=== PATIENT | male | born 1965 | race African-American/Black ===

== ENCOUNTER 2016-10-23 22:35 | Inpatient (IN) ==
[2016-10-23] MEDS ORDERED: SODIUM CHLORIDE 0.9% 500 ML IV STA (22:53)
[2016-10-23] MEDS ORDERED: ONDANSETRON 4 MG/2 ML VIAL IV STA (22:53)
--- NOTE | 2016-10-23 23:00 | Emergency Department Note ---
Shereen Todd Mantricia, am scribing for, and in the presence of, Mark Kumar MD 22:58. José Todd Robert M, MD, personally performed the services described in this documentation, ascribed by Yousuf Regan in my presence, and it is both accurate and complete . Arrival - Arrival Chief Complaint: GI Bleed/Rectal Stated Complaint: rectal bleeding stomach pain ED Nursing Triage Note: C/O Rectal bleeding/generalized abd pain. Onset 2 weeks ago. Denies seeking medical attention until tonight. Mode of Arrival: Ambulatory Limitations: No Limitations Source: Patient - History of Present Illness HPI Narrative: Pt is a 51 y/o black male arriving to ED with c/o rectal bleeding to onset 2 weeks ago. Pt reports a story that he did not notice the blood until yesterday. However, he told the triage nurse that he saw blood two weeks ago and did not come to ED. He reports that his last BM was yesterday. Pt has not had a BM today but states that he saw bright red blood. He also c/o abdominal pain. No other complaints were reported to ED. Onset (ago): week(s) Consistency: constant Allergies/Adverse Reactions: Allergies Allergy/AdvReac Type Severity Reaction Status Date / Time No Known Allergies Allergy Unverified 08/17/16 14:35 Home Medications: Home Medications Medication Instructions Recorded Confirmed Type HYDROcodone/ACETAMIN 7.5-325 1 tablet PO Q6H PRN #20 tablet 08/17/16 10/23/16 Rx [[place] 7.5-325] Review of System - Review of System 12 point system: reviewed and no additional remarkable complaints except as stated - Review of System Constitutional: Absent: chills, diaphoresis, fever Respiratory: Absent: cough Cardiovascular: Absent: chest pain Gastrointestinal: Present: abdominal pain. Absent: nausea, vomiting, diarrhea Genitourinary male: Present: other (rectal bleeding ). Absent: urgency, dysuria Medical,Surgical,& Family Hx - Medical History Neurology: No history of: Vertigo Musculoskeletal: History of: Musculoskeletal Problems (chronic knee pain) - Social History Smoking Status: Current every day smoker Frequency of Alcohol Use: Rarely Type of Drug Use: None Exam Vital Signs: Vital Signs Temperature 98.0 F 10/23/16 22:40 Pulse Rate 127 H 10/23/16 22:40 Respiratory Rate 20 10/23/16 22:40 Blood Pressure 128/96 10/23/16 22:40 O2 Sat by Pulse Oximetry 95 10/23/16 22:40 - General General appearance: alert, in no apparent distress - Head Head exam: Present: atraumatic, normocephalic, normal inspection - Eye Eye exam: Present: normal appearance, PERRL, EOMI - ENT ENT exam: Present: normal exam, normal oropharynx, mucous membranes dry, TM's normal bilaterally, normal external ear exam - Neck Neck exam: Present: normal inspection, full ROM, trachea midline. Absent: tenderness - Chest Chest inspection: Present: normal inspection, symmetric chest wall rise. Absent : tenderness - Respiratory Respiratory exam: Present: normal lung sounds bilaterally - Cardiovascular Cardiovascular exam: Present: normal rhythm, tachycardia, normal heart sounds - Abdominal Exam Abdominal exam: Present: soft, tenderness (LQ tenderness), normal bowel sounds. Absent: distention, guarding, rebound - Extremities Exam Extremities exam: Present: normal inspection, full ROM, normal capillary refill. Absent: tenderness, pedal edema - Back Exam Back exam: Present: normal inspection, full ROM. Absent: tenderness - Neurological Exam Neurological exam: Present: alert, oriented X3, CN II-XII intact, normal gait, reflexes normal - Psychiatric Psychiatric exam: Present: normal affect, normal mood - Skin Skin exam: Present: warm, dry, intact, normal color, other (poor skin turgor) Course - Consultations Consultation #1: Dr. Quang Quinn will evaluate the patient and admit him. Time: 00:19 Results - Labs CBC & BMP: 10/23/16 23:01 10/23/16 23:01 Lab Results: I have reviewed the patients labs Labs: Lab Results WBC 12.6 T/CUMM (4-12) H 10/23/16 23:01 RBC 5.77 MC/CUMM (3.8-5.5) H 10/23/16 23:01 Hgb 17.2 GM/DL (14.0-18.0) 10/23/16 23:01 Hct 49.5 VOL% (42.0-52.0) 10/23/16 23:01 MCV 85.8 FL (87-102) L 10/23/16 23:01 MCH 30 PG (27-34) 10/23/16 23: MCHC 34.7 GM/DL (32-36) 10/23/16 23:01 RDW 13.7 % (9.3-17.3) 10/23/16 23: Plt Count 276 T/CUMM (130-400) 10/23/16 23:01 MPV 11.1 FL (9.6-12.0) 10/23/16 23: Neut % (Auto) 70.5 % (38.7-73.9) 10/23/16 23: Lymph % (Auto) 20.6 % (21.2-54.2) L 10/23/16 23: [place] % (Auto) 7.5 % (1.7-12.7) 10/23/16 23: Eos % (Auto) 0.5 % (0.00-10.9) 10/23/16 23:01 Baso % (Auto) 0.5 % (0.0-0.8) 10/23/16 23: Neut # (Auto) 8.9 10*3/uL (1.4-7.4) H 10/23/16 23:01 Lymph # (Auto) 2.6 10*3/uL (1.4-4.0) 10/23/16 23:01 [place] # (Auto) 0.9 10*3/uL (0.11-0.8) H 10/23/16 23:01 Eos # (Auto) 0.1 10*3/uL (0.0-0.87) 10/23/16 23:01 Baso # (Auto) 0.1 10*3/uL (0.0-0.2) 10/23/16 23: Immature Gran % 0.4 % 10/23/16 23: Nucleated RBC % 0.0 /100WBC 10/23/16 23: Immature Gran # 0.05 # 10/23/16 23: Nucleated RBCs # 0.00 10*3/uL 10/23/16 23: INR 1.0 10/23/16 23:01 PT Patient/Control Mix 11.1 SECS 10/23/16 23:01 Sodium 131 MMOL/L (136-145) L 10/23/16 23: Potassium 4.9 MMOL/L (3.5-5.1) 10/23/16 23: Chloride 90 MMOL/L (98-107) L 10/23/16 23: Carbon Dioxide 29 MMOL/L (21-32) 10/23/16 23: Anion Gap 16.9 MMOL/L (5.0-15.0) H 10/23/16 23: BUN 31 MG/DL (7-18) H 10/23/16 23: Creatinine 2.10 MG/DL (0.70-1.30) H 10/23/16 23: GFR Calculation 58 ML/MIN 10/23/16 23: BUN/Creatinine Ratio 14.00 RATIO (6.00-20.00) 10/23/16 23: Glucose 782 MG/DL (74-106) H* 10/23/16 23: Calculated Osmolality 306.7 MOS/KG (273-304) H 10/23/16 23: Calcium 9.8 MG/DL (8.5-10.1) 10/23/16 23: Magnesium 2.9 MG/DL (1.8-2.4) H 10/23/16 23: Total Bilirubin 0.80 MG/DL (0.2-1.0) 10/23/16 23: AST 21 U/L (0-37) 10/23/16 23: ALT 68 U/L (16-61) H 10/23/16 23:01 Alkaline Phosphatase 93 U/L (45-117) 10/23/16 23: Troponin I < 0.015 NG/ML (0.00-0.045) 10/23/16 23: Total Protein 8.7 G/DL (6.4-8.3) H 10/23/16 23: Albumin 4.3 G/DL (3.4-5.0) 10/23/16 23: Globulin 4.4 G/DL (2.3-3.5) H 10/23/16 23: Albumin/Globulin Ratio 0.9 RATIO (1.1-2.2) L 10/23/16 23: Disposition Clinical Impression: Uncontrolled diabetes mellitus, History of GI bleed Case discussed with: patient, patient's family Disposition: Still a Patient Condition: Stable Time of Disposition: 00:20
[2016-10-23] MEDS ORDERED: ONDANSETRON 4 MG/2 ML VIAL ONE (23:02)
[2016-10-23 23:23] LABS: Basophils # 0.1 10*3/uL (0.0-0.2); Basophils % 0.5 % (0.0-0.8); Eosinophils # 0.1 10*3/uL (0.0-0.87); Eosinophils % 0.5 % (0.00-10.9); Hematocrit 49.5 VOL% (42.0-52.0); Hemoglobin 17.2 GM/DL (14.0-18.0); Immature Granulocytes % 0.4 %; Immature Granulocytes Absolute 0.05 #; Lymphocytes # 2.6 10*3/uL (1.4-4.0); Lymphocytes % 20.6 % (21.2-54.2); Mean Corpuscular HGB Conc 34.7 GM/DL (32-36); Mean Corpuscular Hemoglobin 30 PG (27-34); Mean Corpuscular Volume 85.8 FL (87-102); Mean Platelet Volume 11.1 FL (9.6-12.0); Monocytes # 0.9 10*3/uL (0.11-0.8); Monocytes % 7.5 % (1.7-12.7); Neutrophils # 8.9 10*3/uL (1.4-7.4); Neutrophils % 70.5 % (38.7-73.9); Platelet Count 276 T/CUMM (130-400); Red Blood Count 5.77 MC/CUMM (3.8-5.5); Red Cell Distribution Width 13.7 % (9.3-17.3); White Blood Count 12.6 T/CUMM (4-12)
[2016-10-23 23:32] LABS: PT Patient Result 11.1 SECS
[2016-10-24 00:05] LABS: Alanine Aminotransferase 68 U/L (16-61); Albumin 4.3 G/DL (3.4-5.0); Alkaline Phosphatase 93 U/L (45-117); Aspartate Amino Transferase 21 U/L (0-37); Blood Urea Nitrogen 31 MG/DL (7-18); Calcium 9.8 MG/DL (8.5-10.1); Magnesium 2.9 MG/DL (1.8-2.4); Osmolality,Calculated 306.7 MOS/KG (273-304); Potassium 4.9 MMOL/L (3.5-5.1); Sodium 131 MMOL/L (136-145); Total Protein 8.7 G/DL (6.4-8.3); Troponin I Only < 0.015 NG/ML (0.00-0.045)
[2016-10-24 00:11] LABS: Glucose 782 MG/DL (74-106)
[2016-10-24] MEDS ORDERED: INSULIN REGULAR 100 UNIT/ML IV ONE (00:59)
[2016-10-24] MEDS ORDERED: MAGNESIUM SULF RIDER 2 GM in PREMIX 1 EACH IV PRN (00:59)
[2016-10-24] MEDS ORDERED: DEXTROSE 50% 25 GM/50 ML VIAL IV PRN ×3 (00:59)
[2016-10-24] MEDS ORDERED: SODIUM BICARB INJ 100 MEQ in STERILE WATER INJ 400 ML IV PRN (00:59)
[2016-10-24] MEDS ORDERED: POTASSIUM CHLORIDE RIDER 10 MEQ in PREMIX 1 EACH IV PRN (00:59)
[2016-10-24] MEDS ORDERED: GLUCAGON 1 MG VIAL IM PRN (00:59)
[2016-10-24] MEDS ORDERED: MAGNESIUM SULF RIDER 4 GM in PREMIX 1 EACH IV PRN (00:59)
[2016-10-24] MEDS ORDERED: SODIUM PHOSPHATE INJ 28.3 MMOL in SODIUM CHLORIDE 0.9% 250 ML IV PRN (00:59)
[2016-10-24] MEDS ORDERED: INSULIN REGULAR DRIP 100 ML IV SCH (01:00)
--- NOTE | 2016-10-24 01:15 | Hospitalist History & Physical ---
Assessment and Plan (1) Uncontrolled diabetes mellitus Status: Acute Current Visit: Yes (2) History of GI bleed Status: Acute Assessment and plan: Patient will be admitted to the ICU. Will gain control of his diabetes with insulin infusion. His lab values do not meet the definition of hyperosmolar state at this time. I am going to repeat his chemistry at 6. He will have Accu -Cheks q. one hours. Patient will be adequately resuscitated with IV fluids. Will consult diabetic educators come talk to the patient. At least 3 minutes was spent on discussing the need to quit smoking with this patient. Fortunately patient is not a heavy smoker but smokes every day. Current Visit: Yes History of Present Illness Chief complaint: Blood in bowel movement History of present illness: Mr. Malik is a 51 year old male with no significant past medical history presents to the ER complaining of a two-week history of blood in his bowel movements. Patient reports that symptoms have gotten better. But because patient was pale and weak his urged him come up to the hospital for further evaluation. Patient did and is chemistry displayed a sugar greater than 700. I was consulted to admit him. Home Medications Medication Instructions Recorded Confirmed Type HYDROcodone/ACETAMIN 7.5-325 1 tablet PO Q6H PRN #20 tablet 08/17/16 10/23/16 Rx [[place] 7.5-325] Allergies Allergy/AdvReac Type Severity Reaction Status Date / Time No Known Allergies Allergy Unverified 08/17/16 14:35 Medical,Surgical,& Family Hx - Medical History Neurology: No history of: Vertigo Musculoskeletal: History of: Musculoskeletal Problems (chronic knee pain) - Surgical History Orthopedic Surgeries: Surgical HX of;: Orthopedic Surgery - Family History Family History: Reports;: Family Diabetes - Social History Smoking Status: Current every day smoker Frequency of Alcohol Use: Rarely Type of Drug Use: None 12 point system: reviewed and no additional remarkable complaints except as stated Exam - Constitutional Vitals: Period Temp Pulse Resp BP Sys/[place] Pulse Ox Last 24 Hr 98.0 F-98.0 F 125-127 18-20 128-128/96-96 95 - General General appearance: alert, in no apparent distress - Head Head exam: Present: atraumatic, normocephalic, normal inspection - Eye Eye exam: Present: normal appearance, PERRL, EOMI - ENT ENT exam: Present: normal exam, normal oropharynx, mucous membranes dry, TM's normal bilaterally, normal external ear exam - Neck Neck exam: Present: normal inspection, full ROM, trachea midline. - Chest Chest inspection: Present: normal inspection, symmetric chest wall rise. - Respiratory Respiratory exam: Present: normal lung sounds bilaterally - Cardiovascular Cardiovascular exam: Present: normal rhythm, tachycardia, normal heart sounds - Abdominal Exam Abdominal exam: Present: Some mild generalized tenderness appreciated - Extremities Exam Extremities exam: Present: normal inspection, full ROM, normal capillary refill. - Back Exam Back exam: Present: normal inspection, full ROM. Absent: tenderness - Neurological Exam Neurological exam: Present: alert, oriented X3, CN II-XII intact, normal gait, reflexes normal - Psychiatric Psychiatric exam: Present: normal affect, normal mood - Skin Skin exam: Present: warm, dry, intact, normal color, other (poor skin turgor) Results - Labs CBC & BMP: 10/23/16 23:01 10/23/16 23:01
[2016-10-24 01:38] LABS: Magnesium 2.9 MG/DL (1.8-2.4); Phosphorous 7.1 MG/DL (2.5-4.9)
[2016-10-24] MEDS: SODIUM CHLORIDE 0.9% 1,000 ML IV SCH ×2 (01:44→03:20)
[2016-10-24 01:47] LABS: Apearance,Urine CLEAR (Clear); Bilirubin,Urine Negative (Negative); Blood, Urine Negative (Negative); Glucose,Urine (UA) >=500 mg/dL (Negative); Hyaline Casts,Urine 14 /LPF (0-3); Ketones,Urine 20 mg/dL (Negative); Mucus,Urine Occasional /LPF (Occasional); Nitrite,Urine Negative (Negative); Protein,Urine Negative; RBC,Urine 1 /HPF (0-4); Squamous Epithelial Cell,Urine Occasional /HPF (0-10); Urine Color Yellow (Yellow); Urine Specific Gravity 1.028 (1.001-1.035); Urine Urobilinogen < 2.0 EU/DL (0.2-1.0)
[2016-10-24 02:41] LABS: Basophils % 0.2 % (0.0-0.8); Eosinophils % 0.2 % (0.00-10.9); Hematocrit 47.5 VOL% (42.0-52.0); Hemoglobin 16.2 GM/DL (14.0-18.0); Immature Granulocytes % 0.4 %; Immature Granulocytes Absolute 0.05 #; Lymphocytes # 2.3 10*3/uL (1.4-4.0); Lymphocytes % 17.6 % (21.2-54.2); Mean Corpuscular HGB Conc 34.1 GM/DL (32-36); Mean Corpuscular Hemoglobin 29 PG (27-34); Mean Corpuscular Volume 86.1 FL (87-102); Mean Platelet Volume 11.1 FL (9.6-12.0); Monocytes # 0.3 10*3/uL (0.11-0.8); Neutrophils # 10.2 10*3/uL (1.4-7.4); Neutrophils % 79.6 % (38.7-73.9); Platelet Count 265 T/CUMM (130-400); Red Blood Count 5.52 MC/CUMM (3.8-5.5); Red Cell Distribution Width 13.6 % (9.3-17.3); White Blood Count 12.8 T/CUMM (4-12)
[2016-10-24 03:17] LABS: Magnesium 2.9 MG/DL (1.8-2.4); Phosphorous 5.3 MG/DL (2.5-4.9)
[2016-10-24] MEDS ORDERED: SODIUM CHLORIDE 0.9% 1,000 ML IV SCH (05:04)
--- NOTE | 2016-10-24 07:06 | EKG Report ---
Stationary ECG Study [facility] ER Test Date: 10/23/2016 11:15:34 PM Pat Name: SHAYAN COWAN Department: Room: 125 Gender: M Sales Product Manager: : 1965 Requested by: Mark Kumar Order Number: [id number] Reading MD: LIOR STEINBERG Intervals [place] Rate: 113 P: 999 MS: 0 QRS: 71 QRSD: 82 T: 14 QT: 337 QTc: 404 Interpretive Statements Sinus tachycardia S1Q3T3 pattern, consider RV strain Electronically Signed On 10-24-16 07:48:54 CDT by LIOR STEINBERG [email or web address]
--- NOTE | 2016-10-24 07:08 | XRay Report ---
History short of breath Comparison 11/16/2009 The heart is normal in size The lungs are mildly under aerated without more focal consolidation seen. Suspected bullous changes in the apices present. Impression: 1. Mild hypoaeration changes in the lung bases superimposed on chronic changes PROCEDURE INTERPRETED AT [facility] DEPARTMENT OF RADIOLOGY Final Report Signed by: Dr. Selina Resendiz
[2016-10-24 07:20] LABS: Calcium 8.3 MG/DL (8.5-10.1); Osmolality,Calculated 298.1 MOS/KG (273-304); Potassium 4.2 MMOL/L (3.5-5.1)
[2016-10-24] MEDS: ENOXAPARIN 40 MG/0.4 ML SYRINGE SUBCUT SCH (09:25)
[2016-10-24] MEDS: SODIUM CHLORIDE 0.45% 1,000 ML IV SCH ×2 (09:28→17:53)
[2016-10-24] MEDS ORDERED: INSULIN GLARGINE 100 UNIT/ML SUBCUT SCH (09:30)
--- NOTE | 2016-10-24 09:47 | Hospitalist Progress Note ---
Assessment and Plan (1) Uncontrolled diabetes mellitus Status: Acute Assessment and plan: Pt's Hbg A1c is 9.6. Pt's blood sugars have improved overnight. Pt. will be transferred to medical floor. Accuchecks ACHS and SSI initiated. Lantus started. Will continue to monitor blood sugars. Consult in for diabetes educators to see. Pt. instructed to establish care with a PCP Current Visit: Yes (2) History of GI bleed Status: Chronic Assessment and plan: No complaints of bleeding. H&H stable. Will continue to monitor labs. Current Visit: Yes Hospitalist: Subjective Interval history: Mr. Malik was seen and examined. Labs and chart have been reviewed. present at bedside. No apparent distress noted. Pt. is alert and oriented. Pt. is resting comfortably in bed with no complaints. Pt. states that he feels better today. Pt.'s blood sugars have decreased and insulin infusion has been discontinued. Pt. will be started on SSI and lantus. Pt is stable and can be transferred to a med surg unit today. Exam - Constitutional Vitals: Period Temp Pulse Resp BP Sys/[place] Pulse Ox Last 24 Hr 97.8 F-98.4 F 96-127 15-22 118-153/68-99 92-99 General appearance: no acute distress - Head Head exam: Present: normal inspection, normocephalic - Eye Eye exam: Present: EOMI. Absent: scleral icterus Pupils: Present: JONAH - Respiratory Respiratory exam: Present: clear to auscultation bilaterally. Absent: wheezes - Cardiovascular Cardiovascular exam: Present: regular rate and rhythm - GI/Abdominal GI/Abdominal exam: Present: normal bowel sounds, soft. Absent: tenderness - Extremities Exam Extremities exam: Present: normal capillary refill, full ROM. Absent: edema - Neurological Exam Neurological exam: Present: alert, oriented X3 - Psychiatric Psychiatric exam: Present: normal affect, normal mood - Skin Skin exam: Present: normal color, warm, dry Results - Labs CBC & BMP: 10/24/16 02:14 10/24/16 06:29 Lab Results: I have reviewed the past 24 hour labs
[2016-10-24] MEDS: INSULIN LISPRO 100 UNIT/ML SUBCUT SCH ×3 (11:07→23:54)
[2016-10-24 12:16] LABS: Calcium 8.4 MG/DL (8.5-10.1); Osmolality,Calculated 295.3 MOS/KG (273-304); Potassium 4.5 MMOL/L (3.5-5.1)
[2016-10-24 18:36] LABS: Calcium 7.9 MG/DL (8.5-10.1); Osmolality,Calculated 294.8 MOS/KG (273-304); Potassium 4.4 MMOL/L (3.5-5.1)
[2016-10-25 02:06] LABS: Calcium 7.5 MG/DL (8.5-10.1); Osmolality,Calculated 289.7 MOS/KG (273-304); Potassium 4.3 MMOL/L (3.5-5.1)
[2016-10-25] MEDS: SODIUM CHLORIDE 0.45% 1,000 ML IV SCH (02:24)
[2016-10-25] MEDS: INSULIN LISPRO 100 UNIT/ML SUBCUT SCH (06:34)
[2016-10-25 07:54] LABS: Calcium 8.2 MG/DL (8.5-10.1); Osmolality,Calculated 287.5 MOS/KG (273-304); Potassium 4.3 MMOL/L (3.5-5.1)
[2016-10-25] MEDS ORDERED: metFORMIN 500 MG TABLET PO SCH (08:00)
[2016-10-25] MEDS: ENOXAPARIN 40 MG/0.4 ML SYRINGE SUBCUT SCH (08:36)
[2016-10-25] MEDS ORDERED: INSULIN GLARGINE 100 UNIT/ML SUBCUT SCH (09:00)
--- NOTE | 2016-10-25 10:28 | Discharge Summary ---
Hospital Course - Hospital Course Hospital Course: MR Malik presented with an episode of BRBPR. In ER his glucose was over 700. He was diagnosed with new onset diabetes. He was treated with IV insulin infusion briefly and then with lantus. He has been seen by diabetes education and has some familiarity with diabetes because until now he was the only one in his family who didn't have it. His was present for diabetes education and diet teaching. He has not had anymore BRBPR. His stool was guaiac positive. His H&H is stable. He wants to go home and have GI assessment as an outpatient. I will refer him to Dr Gupta's clinic this week. He will also establish with DR Harini Sy for primary care in the next couple of weeks. I have explained to him that it will take collaboration between him and Dr Sy to get his diabetes under optimal control. - Time spent with patient Time with patient DS: Greater than 30 minutes (counseling, discahrge coordination, medicine reconciliation, documentation) Diagnosis - Discharge Diagnosis (1) Newly diagnosed diabetes Status: Acute (2) Guaiac positive stools Status: Acute Specialty Discharge - Follow Up or Referrals Follow up with: Harini Sy DO [Physician] - 1 Week Omar Gupta MD [Physician] - 1 Week (guaiac positive stool) Discharge Plan - Discharge Data Disposition: Disch To Home/Self Care Condition at Discharge: Stable Discharge Diet: diabetic diet, heart healthy Activity: resume usual activities as tolerated - Discharge Medications New RX: metFORMIN [Glucophage] 500 mg PO BID W/MEALS #60 tablet [place], Disposable [[place]] 1 each MISC DAILY #100 needle Blood Sugar Diagnostic [Glucose Test Strip] 1 each MC TID #120 strip RX: Lancets 1 each MC TID #120 each Insulin Glargine,Hum.rec.anlog [Lantus SoloStar] 25 unit SUBCUT DAILY #3 ml Continue RX: HYDROcodone/ACETAMIN 7.5-325 [[place] 7.5-325] 1 tablet PO Q6H PRN #20 tablet PRN Reason: Pain - Follow Up or Referral Follow Up: Omar Gupta MD [Physician] - 1 Week (guaiac positive stool) Harini Sy DO [Physician] - 1 Week - Forms/Instructions Exam - Constitutional Vitals: Period Temp Pulse Resp BP Sys/[place] Pulse Ox Last 24 Hr 97.5 F-98.8 F 68-90 18-20 135-152/78-91 93-96 General appearance: no acute distress, over weight - Head Head exam: Present: normocephalic, atraumatic - Eye Eye exam: Present: EOMI. Absent: scleral icterus - Respiratory Respiratory exam: Present: clear to auscultation bilaterally - Cardiovascular Cardiovascular exam: Present: regular rate and rhythm - GI/Abdominal GI/Abdominal exam: Present: normal bowel sounds, soft. Absent: tenderness - Extremities Exam Extremities exam: Absent: edema Discharge Results Procedures and tests throughout hospitalization: Pending Orders 10/24/16 06:29 Beta-Hydroxybutyrate, S Routine 10/24/16 21:47 Occult Blood, Stool Routine Labs on day of discharge: Labs from last 24 hours 10/25/16 10/25/16 10/25/16 07:26 07:14 00:21 Sodium 139 138 Potassium 4.3 4.3 Chloride 104 102 Carbon Dioxide 31 27 Anion Gap 8.3 13.3 BUN 17 21 H Creatinine 1.10 1.20 GFR Calculation 127 112 BUN/Creatinine Ratio 15.00 17.00 Glucose 254 H 316 H POC Glucose 254 H Calculated Osmolality 287.5 289.7 Calcium 8.2 L 7.5 L 10/24/16 10/24/16 10/24/16 23:41 20:57 18:10 Sodium 137 Potassium 4.4 Chloride 101 Carbon Dioxide 29 Anion Gap 11.4 BUN 23 H Creatinine 1.40 H GFR Calculation 93 BUN/Creatinine Ratio 16.00 Glucose 421 H POC Glucose 329 H 385 H Calculated Osmolality 294.8 Calcium 7.9 L 10/24/16 10/24/16 10/24/16 17:29 11:33 11:03 Sodium 141 Potassium 4.5 Chloride 103 Carbon Dioxide 32 Anion Gap 10.5 BUN 24 H Creatinine 1.40 H GFR Calculation 93 BUN/Creatinine Ratio 17.00 Glucose 289 H POC Glucose 405 H 298 H Calculated Osmolality 295.3 Calcium 8.4 L 10/24/16 10/24/16 08:49 07:50 Sodium Potassium Chloride Carbon Dioxide Anion Gap BUN Creatinine GFR Calculation BUN/Creatinine Ratio Glucose POC Glucose 183 H 203 H Calculated Osmolality Calcium DS: Provider Date of admission: 10/24/16 00:45 Primary care physician: . No PCP Attending physician on admission: Quang Quinn MD Consults: 10/24/16 01:04 Consult to [facility], Educator [CONS] Routine Reason for [employer]: Diabetes Education Initial Insulin Education Consult Comment: INSULIN EDUCATION Discharging clinician: Kayla Bansal MD
[2016-10-25] MEDS ORDERED: INSULIN LISPRO 100 UNIT/ML SUBCUT SCH (11:30)
[2016-10-25 12:45] VITALS: BP 132/89
[2016-10-25 13:26] LABS: Hematocrit 42.1 VOL% (42.0-52.0); Hemoglobin 14.1 GM/DL (14.0-18.0)
== END 2016-10-25 14:30 | disposition home or self-care (01) | DRG 638 ==
LOC: N.ED 22:35 → SUATTDRO 10-24 00:45 → N.EDINP 10-24 00:45 → N.CC 10-24 01:33 → N.3E 10-24 10:51
PROVIDERS: ADMIT Internal Medicine; ATTEND Internal Medicine

== ENCOUNTER 2017-03-15 15:24 | Inpatient (IN) ==
[2017-03-15] MEDS ORDERED: ACETAMINOPHEN 500 MG TABLET PO STA (16:41)
[2017-03-15] MEDS ORDERED: ALBUTEROL NEB SOLN 5 MG/ML 20 ML/BOTTLE CONT NEB STA (16:41)
[2017-03-15] MEDS ORDERED: methylPREDNISolone SOD SUC 125 MG/2 ML VIAL IV STA (16:41)
[2017-03-15] MEDS ORDERED: cefTRIAXone 1,000 MG in SODIUM CHLORIDE 0.9% 100 ML IV STA (16:41)
[2017-03-15] MEDS ORDERED: cefTRIAXone 1,000 MG VIAL ONE (16:51)
[2017-03-15] MEDS ORDERED: ACETAMINOPHEN 500 MG TABLET ONE (16:52)
[2017-03-15] MEDS ORDERED: methylPREDNISolone SOD SUC 125 MG/2 ML VIAL ONE (16:52)
[2017-03-15 16:58] LABS: Basophils % 0.3 % (0.0-0.8); Hematocrit 42.3 VOL% (42.0-52.0); Hemoglobin 14.5 GM/DL (14.0-18.0); Immature Granulocytes % 0.4 %; Immature Granulocytes Absolute 0.03 #; Lymphocytes # 0.7 10*3/uL (1.4-4.0); Lymphocytes % 9.7 % (21.2-54.2); Mean Corpuscular HGB Conc 34.3 GM/DL (32-36); Mean Corpuscular Hemoglobin 30 PG (27-34); Mean Corpuscular Volume 88.3 FL (87-102); Mean Platelet Volume 10.6 FL (9.6-12.0); Monocytes # 0.8 10*3/uL (0.11-0.8); Monocytes % 11.3 % (1.7-12.7); Neutrophils # 5.8 10*3/uL (1.4-7.4); Neutrophils % 78.3 % (38.7-73.9); Platelet Count 239 T/CUMM (130-400); Red Blood Count 4.79 MC/CUMM (3.8-5.5); Red Cell Distribution Width 14.6 % (9.3-17.3); White Blood Count 7.5 T/CUMM (4-12)
[2017-03-15 17:11] LABS: ABG HCO3 25.2 MMOL/L (20-26); ABG Oxygen Saturation 91.8 % (95-100); ABG PCO2 38.7 MM HG (35-48); ABG PH 7.423 (7.35-7.45); ABG PO2 63.3 MM HG (80-95); ABG TCO2 22.1 MMOL/L (23-27)
[2017-03-15 17:13] LABS: Apearance,Urine CLEAR (Clear); Bilirubin,Urine Negative (Negative); Blood, Urine Small mg/dL (Negative); Glucose,Urine (UA) Negative (Negative); Ketones,Urine 5 mg/dL (Negative); Mucus,Urine Few /LPF (Occasional); Nitrite,Urine Negative (Negative); Protein,Urine Negative; RBC,Urine 2 /HPF (0-4); Squamous Epithelial Cell,Urine Occasional /HPF (0-10); Urine Color Yellow (Yellow); Urine Specific Gravity 1.024 (1.001-1.035); Urine Urobilinogen < 2.0 EU/DL (0.2-1.0); WBC,Urine 2 /HPF (0-6)
[2017-03-15 17:19] LABS: Albumin 3.5 G/DL (3.4-5.0); Bilirubin,Total 0.5 MG/DL (0.2-1.0); Calcium 8.7 MG/DL (8.5-10.1); Lactic Acid 1.1 MMOL/L (0.4-2.0); Osmolality,Calculated 274.8 MOS/KG (273-304); Potassium 3.9 MMOL/L (3.5-5.1); Total Protein 7.3 G/DL (6.4-8.3)
[2017-03-15] MEDS ORDERED: KETOROLAC 30 MG/1 ML VIAL ONE (17:59)
[2017-03-15] MEDS ORDERED: KETOROLAC 30 MG/1 ML VIAL IV STA (18:06)
[2017-03-15] MEDS ORDERED: ONDANSETRON 4 MG/2 ML VIAL IV PRN (18:52)
[2017-03-15] MEDS ORDERED: NICOTINE 21 MG/24 HR PATCH TRANSDERM PRN (18:52)
[2017-03-15] MEDS ORDERED: ACETAMINOPHEN 325 MG TABLET PO PRN (18:52)
[2017-03-15] MEDS ORDERED: DEXTROSE 50% 25 GM/50 ML VIAL IV PRN (18:58)
[2017-03-15] MEDS ORDERED: GLUCAGON 1 MG VIAL IM PRN (18:58)
[2017-03-15] MEDS: INSULIN LISPRO 100 UNIT/ML SUBCUT SCH (21:32)
[2017-03-15] MEDS: AZITHROMYCIN INJ 500 MG in SODIUM CHLORIDE 0.9% 250 ML IV SCH (21:53)
[2017-03-15] MEDS: SODIUM CHLORIDE 0.9% 1,000 ML IV SCH (21:53)
[2017-03-16 06:39] LABS: Basophils % 0.1 % (0.0-0.8); Hematocrit 40.7 VOL% (42.0-52.0); Hemoglobin 13.8 GM/DL (14.0-18.0); Immature Granulocytes % 0.3 %; Immature Granulocytes Absolute 0.03 #; Lymphocytes # 0.7 10*3/uL (1.4-4.0); Lymphocytes % 7.2 % (21.2-54.2); Mean Corpuscular HGB Conc 33.9 GM/DL (32-36); Mean Corpuscular Hemoglobin 30 PG (27-34); Mean Corpuscular Volume 88.7 FL (87-102); Mean Platelet Volume 9.9 FL (9.6-12.0); Monocytes # 0.2 10*3/uL (0.11-0.8); Monocytes % 2.6 % (1.7-12.7); Neutrophils # 8.1 10*3/uL (1.4-7.4); Neutrophils % 89.8 % (38.7-73.9); Platelet Count 226 T/CUMM (130-400); Red Blood Count 4.59 MC/CUMM (3.8-5.5); Red Cell Distribution Width 14.5 % (9.3-17.3)
[2017-03-16 07:24] LABS: Calcium 8.2 MG/DL (8.5-10.1); Free T4 (Free Thyroxine) 1.03 NG/DL (0.76-1.46); Osmolality,Calculated 286.5 MOS/KG (273-304); Potassium 3.7 MMOL/L (3.5-5.1); Risk Ratio 4.97; Thyroid Stimulating Hormone 0.095 uIU/ml (0.358-3.74)
[2017-03-16] MEDS: INSULIN GLARGINE 100 UNIT/ML SUBCUT SCH (09:48)
[2017-03-16] MEDS: PANTOPRAZOLE 40 MG TABLET PO SCH (09:48)
[2017-03-16] MEDS: INSULIN LISPRO 100 UNIT/ML SUBCUT SCH ×4 (09:48→20:42)
[2017-03-16] MEDS: SODIUM CHLORIDE 0.9% 1,000 ML IV SCH (09:49)
[2017-03-16] MEDS ORDERED: cefTRIAXone 1,000 MG in SYRINGE 1 EACH IV SCH (17:00)
[2017-03-16] MEDS: AZITHROMYCIN INJ 500 MG in SODIUM CHLORIDE 0.9% 250 ML IV SCH (20:47)
[2017-03-17] MEDS ORDERED: DEXTROMETHORPHAN ER 6 MG/ML 90 ML/BOTTLE PO PRN (03:36)
[2017-03-17 04:46] LABS: Basophils % 0.1 % (0.0-0.8); Eosinophils % 0.4 % (0.00-10.9); Hematocrit 40.4 VOL% (42.0-52.0); Hemoglobin 13.4 GM/DL (14.0-18.0); Immature Granulocytes % 0.5 %; Immature Granulocytes Absolute 0.06 #; Lymphocytes # 2.1 10*3/uL (1.4-4.0); Mean Corpuscular HGB Conc 33.2 GM/DL (32-36); Mean Corpuscular Hemoglobin 30 PG (27-34); Mean Platelet Volume 10.6 FL (9.6-12.0); Monocytes # 0.7 10*3/uL (0.11-0.8); Monocytes % 6.5 % (1.7-12.7); Neutrophils # 8.1 10*3/uL (1.4-7.4); Neutrophils % 73.5 % (38.7-73.9); Platelet Count 219 T/CUMM (130-400); Red Blood Count 4.49 MC/CUMM (3.8-5.5); Red Cell Distribution Width 14.6 % (9.3-17.3)
[2017-03-17 05:08] LABS: Calcium 7.7 MG/DL (8.5-10.1); Osmolality,Calculated 289.7 MOS/KG (273-304); Potassium 3.9 MMOL/L (3.5-5.1)
[2017-03-17 07:46] VITALS: BP 134/87
[2017-03-17] MEDS: INSULIN LISPRO 100 UNIT/ML SUBCUT SCH ×2 (09:49→12:04)
[2017-03-17] MEDS: INSULIN GLARGINE 100 UNIT/ML SUBCUT SCH (09:50)
[2017-03-17] MEDS: PANTOPRAZOLE 40 MG TABLET PO SCH (09:51)
[2017-03-17] MEDS: SODIUM CHLORIDE 0.9% 1,000 ML IV SCH (12:03)
== END 2017-03-17 12:01 | disposition home or self-care (01) | DRG 195 ==
LOC: EDBD → N.ED 15:24 → N.EDINP 18:10 → N.2E 18:49
PROVIDERS: ADMIT Internal Medicine; ATTEND Internal Medicine

== ENCOUNTER 2021-09-25 23:49 | Observation (INO) ==
[2021-09-26] MEDS ORDERED: ASPIRIN 325 MG TABLET PO STA (00:01)
[2021-09-26 00:16] LABS: Basophils # 0.1 10*3/uL (0.0-0.2); Basophils % 0.7 % (0.0-0.8); Eosinophils # 0.1 10*3/uL (0.0-0.87); Eosinophils % 1.2 % (0.00-10.9); Immature Granulocytes % 0.2 %; Immature Granulocytes Absolute 0.02 #; Lymphocytes % 32.9 % (21.2-54.2); Mean Corpuscular HGB Conc 30.4 GM/DL (32-36); Mean Platelet Volume 9.5 FL (9.6-12.0); Monocytes # 0.8 10*3/uL (0.11-0.8); Monocytes % 8.5 % (1.7-12.7); Neutrophils % 56.5 % (38.7-73.9); Platelet Count 252 T/CUMM (130-400); Red Blood Count 5.04 MC/CUMM (3.8-5.5); Red Cell Distribution Width 14.6 % (9.3-17.3); White Blood Count 9.2 T/CUMM (4-12)
[2021-09-26 00:17] LABS: Hematocrit 49.4 VOL% (42.0-52.0)
[2021-09-26] MEDS ORDERED: ENOXAPARIN 100 MG/ML SYRINGE SUBCUT STA (00:33)
[2021-09-26] MEDS ORDERED: NITROGLYCERIN 2% OINT 1 INCH/GM PACK TOP STA (00:33)
[2021-09-26] MEDS ORDERED: FUROSEMIDE 40 MG/4 ML VIAL IV STA (00:33)
[2021-09-26] MEDS ORDERED: ONDANSETRON 4 MG/2 ML VIAL IV STA (00:33)
[2021-09-26] MEDS ORDERED: MORPHINE 2 MG/1 ML SYRINGE IV STA (00:33)
[2021-09-26 00:42] LABS: Albumin 3.6 G/DL (3.4-5.0); Bilirubin,Total 0.6 MG/DL (0.20-1.00); Calcium 9.4 MG/DL (8.5-10.1); Osmolality,Calculated 283.1 MOS/KG (273-304); Potassium 3.4 MMOL/L (3.5-5.1); Total Protein 7.1 G/DL (6.4-8.2)
[2021-09-26] MEDS ORDERED: MAGNESIUM SULF RIDER 2 GM/50 ML PREMIX IV STA (00:44)
[2021-09-26] MEDS ORDERED: POTASSIUM CHLORIDE 20 MEQ TABLET PO STA (00:45)
[2021-09-26] MEDS ORDERED: GLUCAGON 1 MG VIAL IM PRN ×2 (01:11→11:13)
[2021-09-26] MEDS ORDERED: NITROGLYCERIN SL 0.4 MG TABLET SL PRN (01:11)
[2021-09-26] MEDS ORDERED: NICOTINE 21 MG/24 HR PATCH TRANSDERM PRN (01:11)
[2021-09-26] MEDS ORDERED: ONDANSETRON 4 MG/2 ML VIAL IV PRN (01:11)
[2021-09-26] MEDS ORDERED: ACETAMINOPHEN 325 MG TABLET PO PRN (01:11)
[2021-09-26] MEDS ORDERED: MORPHINE 2 MG/1 ML SYRINGE IV PRN (01:11)
[2021-09-26] MEDS ORDERED: hydrALAZINE 20 MG/1 ML VIAL IV PRN (01:17)
[2021-09-26] MEDS ORDERED: DEXTROSE 10% 250 ML BAG IV PRN ×2 (01:25→11:15)
[2021-09-26 02:19] LABS: Bacteria,Urine Occasional /HPF (Few); Mucus,Urine Few /LPF (Occasional); RBC,Urine 2 /HPF (0-4); Squamous Epithelial Cell,Urine Occasional /HPF (0-10)
[2021-09-26 02:22] LABS: Bilirubin,Urine Negative (Negative); Blood, Urine Negative (Negative); Glucose,Urine (UA) Negative (Negative); Ketones,Urine Negative (Negative); Nitrite,Urine Negative (Negative); Protein,Urine Negative (Negative); Urine Appearance Clear (Clear); Urine Color Yellow (Yellow); Urine Urobilinogen 0.2 eU/dL (<2.0); Urine pH 5.5 (4.5-8.0)
[2021-09-26 03:25] LABS: Barbiturates Screen,Urine Negative (Negative); Benzodiazepines Screen,Urine Negative (Negative); Cannabinoid Screen,Urine Negative (Negative); Opiate Screen,Urine Positive (Negative); Phencyclidine Screen,Urine Negative (Negative)
[2021-09-26 04:31] LABS: Albumin 3.7 G/DL (3.4-5.0); Bilirubin,Total 0.8 MG/DL (0.20-1.00); Calcium 9.2 MG/DL (8.5-10.1); Osmolality,Calculated 279.3 MOS/KG (273-304); Potassium 3.9 MMOL/L (3.5-5.1); Risk Ratio 4.82; Thyroid Stimulating Hormone 1.14 uIU/ml (0.358-3.74); VLDL Cholesterol 13.8 MG/DL
[2021-09-26] MEDS: INSULIN REGULAR 100 UNIT/ML SUBCUT SCH ×4 (08:14→21:45)
[2021-09-26] MEDS: lisinopriL 2.5 MG TABLET PO SCH (08:14)
[2021-09-26] MEDS: PANTOPRAZOLE 40 MG TABLET PO SCH (08:14)
[2021-09-26] MEDS ORDERED: ENOXAPARIN 100 MG/ML SYRINGE SUBCUT SCH (12:30)
[2021-09-26] MEDS ORDERED: amLODIPine 5 MG TABLET PO ONE (14:19)
[2021-09-26] MEDS ORDERED: LEVOFLOXACIN INJ 500 MG/100 ML PREMIX IV SCH (15:00)
[2021-09-26] MEDS: ALBUTEROL 1.25 MG/3 ML NEB RESP TX SCH ×2 (15:01→20:15)
[2021-09-26] MEDS ORDERED: KETOROLAC 30 MG/1 ML VIAL IV ONE (16:30)
[2021-09-27] MEDS: ALBUTEROL 1.25 MG/3 ML NEB RESP TX SCH ×2 (01:17→07:14)
[2021-09-27 04:58] LABS: Basophils % 0.3 % (0.0-0.8); Eosinophils # 0.1 10*3/uL (0.0-0.87); Eosinophils % 1.4 % (0.00-10.9); Hematocrit 47.1 VOL% (42.0-52.0); Hemoglobin 15.2 GM/DL (14.0-18.0); Immature Granulocytes % 0.3 %; Immature Granulocytes Absolute 0.03 #; Lymphocytes # 2.9 10*3/uL (1.4-4.0); Lymphocytes % 32.5 % (21.2-54.2); Mean Corpuscular HGB Conc 32.3 GM/DL (32-36); Mean Corpuscular Volume 91.6 FL (87-102); Mean Platelet Volume 9.9 FL (9.6-12.0); Monocytes # 0.7 10*3/uL (0.11-0.8); Monocytes % 7.8 % (1.7-12.7); Neutrophils % 57.7 % (38.7-73.9); Platelet Count 264 T/CUMM (130-400); Red Blood Count 5.14 MC/CUMM (3.8-5.5); Red Cell Distribution Width 14.5 % (9.3-17.3); White Blood Count 8.8 T/CUMM (4-12)
[2021-09-27 05:00] LABS: Calcium 9.4 MG/DL (8.5-10.1); Potassium 3.7 MMOL/L (3.5-5.1)
[2021-09-27] MEDS: INSULIN REGULAR 100 UNIT/ML SUBCUT SCH ×2 (07:26→11:00)
[2021-09-27] MEDS: PANTOPRAZOLE 40 MG TABLET PO SCH (08:47)
[2021-09-27] MEDS: lisinopriL 2.5 MG TABLET PO SCH (08:47)
[2021-09-27] MEDS ORDERED: amLODIPine 5 MG TABLET PO SCH (09:00)
[2021-09-27] MEDS ORDERED: ROSUVASTATIN 10 MG TABLET PO SCH (09:00)
[2021-09-27] MEDS ORDERED: ASPIRIN EC 81 MG TABLET PO SCH (09:00)
[2021-09-27] MEDS ORDERED: ASPIRIN EC 325 MG TABLET PO SCH (09:00)
[2021-09-27] MEDS ORDERED: ENOXAPARIN 40 MG/0.4 ML SYRINGE SUBCUT SCH (09:00)
[2021-09-27 09:07] VITALS: BP 148/90
== END 2021-09-27 10:50 | disposition home or self-care (01) ==
LOC: N.TELEN 23:49 → N.ED 23:49 → N.TELEN 09-26 02:42
PROVIDERS: ADMIT Family Medicine; ATTEND Family Medicine